=== PATIENT | male | born 1950 | race Caucasian/White ===

== ENCOUNTER 2018-11-20 11:28 | Emergency (ER) | payer MEDICARE ==
[~2018-11-20] VITALS: Ht 182.9 cm; Wt 104.3 kg
[2018-11-20 12:41] LABS: ABSOLUTE NEUTROPHILS 8.2 thou/uL (1.4-8.2); BASOPHILS 0.6 % (0.0-2.0); EOSINOPHILS 1.9 % (0.0-3.0); HEMATOCRIT 39.4 % (42.0-52.0); HEMOGLOBIN 12.2 gm/dL (14.0-18.0); LYMPHOCYTES 12.6 % (24.0-44.0); MCH 19.8 pg (26.0-34.0); MCV 63.9 fL (80.0-100.0); MONOCYTES 5.5 % (1.0-8.0); PLATELET COUNT 283 thou/uL (150-400); POLYS 79.4 % (36.0-66.0); RBC 6.16 mil/uL (4.50-6.00); RDW 21.8 % (10.5-14.5); WBC 10.4 thou/uL (4.0-11.0)
[2018-11-20 12:51] LABS: ANION GAP 12 mmol/L (7-16); BUN 27 mg/dL (7-18); CALCIUM 8.4 mg/dL (8.5-10.1); CHLORIDE 106 mmol/L (98-107); CO2 25 mmol/L (21-32); CREATININE 1.5 mg/dL (0.7-1.3); GLUCOSE 228 mg/dL (74-106); POTASSIUM 4.1 mmol/L (3.5-5.1); SODIUM 143 mmol/L (136-145)
[2018-11-20 13:01] LABS: TROPONIN-I <0.06 ng/mL (<0.06)
[2018-11-20 13:04] LABS: HYPOCHROMASIA 1+
[2018-11-20 13:05] LABS: ANISOCYTOSIS 1+; MICROCYTES 1+
--- NOTE | 2018-11-20 13:39 | EKG ---
[address] [address] [place] [address] ELECTROCARDIOGRAM REPORT Name: TED SILVEIRA Room #: REGENCY MERIDIANRicha#: [id number] ������������������ Admission: 11/20/18 ������������������ Attend Phys: Discharge: ������������������ Date of : 50 Report #: [id number] ����������������������������������������������������������������� [id number] THIS REPORT FOR: //name// [facility] ED Test Date: 2018-11-20 Test Time: 12:08:57 Pat Name: TED SILVEIRA Department: Room: Gender: [employer]: [facility] : 1950 Requested By: Larisa Mccarty Order Number: [id number] MD: Yosi Lopez Measurements Intervals [place] Rate: 78 P: 42 AL: 185 QRS: 4 QRSD: 100 T: 156 QT: 370 QTc: 422 Interpretive Statements Sinus rhythm Nonspecific ST and T wave abnormality No previous ECG available for comparison Electronically Signed On 11-20-2018 13:39:22 CDT by Yosi Lopez [email or web address] ��������������������������������������������� <ELECTRONICALLY SIGNED> ���������������������������������������� By: Yosi Lopez MD, [facility] ��������������������������������������������� 11/20/18 1339 1208 1208 Yosi Lopez MD, FACC /EPI
[2018-11-20] MEDS ORDERED: COZAAR 25 MG TA25 M1 PO (13:45)
[2018-11-20] MEDS ORDERED: LOVASTATIN 20 M20 MG PO (13:45)
[2018-11-20] MEDS ORDERED: BYSTOLIC 5 MG5 M1 PO (13:45)
[2018-11-20 15:24] VITALS: BP 178/102
== END 2018-11-20 15:26 | disposition home or self-care (01) ==
LOC: ER 11:28
PROVIDERS: Student in an Organized Health Care Education/Training Program
DX: R06.02 Shortness of breath (principal); I10 Essential (primary) hypertension; M41.9 Scoliosis, unspecified